=== PATIENT | female | born 1980 | race Caucasian/White ===

== ENCOUNTER 2021-04-13 13:22 | Outpatient (CLI) | payer MEDICARE, MEDICAID | END 2021-04-13 23:59 | disposition home or self-care (01) | LOC: RAD 13:22 | DX: T78.1XXA Other adverse food reactions, not elsewhere classified, initial encounter (principal); G35 Multiple sclerosis; R47.1 Dysarthria and anarthria; R13.12 Dysphagia, oropharyngeal phase; X58.XXXA Exposure to other specified factors, initial encounter; Y93.89 Activity, other specified; Y92.89 Other specified places as the place of occurrence of the external cause; Y99.8 Other external cause status | CPT/HCPCS: 74230 ==